=== PATIENT | female | born 1945 | race Caucasian/White ===

== ENCOUNTER 2023-05-23 13:23 | Inpatient (IN) | payer MEDICARE, OTHER ==
[~2023-05-23] VITALS: Ht 154.9 cm; Wt 57.6 kg
[2023-05-23] MEDS ORDERED: CEFEPIME 1 GM in IV D5W 50 ML IV ONE (14:00)
[2023-05-23] MEDS ORDERED: VANCOMYCIN 1 GM in IV D5W 250 ML IV ONE (14:00)
[2023-05-23] MEDS ORDERED: ASPI-1169 PO (14:17)
[2023-05-23] MEDS ORDERED: BISA10SU11 RC (14:17)
[2023-05-23] MEDS ORDERED: METO25TA3 PO (14:17)
[2023-05-23] MEDS ORDERED: CRAN425C6 PO (14:17)
[2023-05-23] MEDS ORDERED: MAGN400O6 PO (14:17)
[2023-05-23] MEDS ORDERED: HYDR-4303 PO (14:17)
[2023-05-23] MEDS ORDERED: PREG50CA PO (14:17)
[2023-05-23] MEDS ORDERED: ROSU20TA2 PO (14:17)
[2023-05-23] MEDS ORDERED: AMLO-213 PO (14:17)
[2023-05-23] MEDS ORDERED: ASCO-352 PO (14:17)
[2023-05-23] MEDS ORDERED: DOCU-141 PO (14:17)
[2023-05-23] MEDS ORDERED: FURO-144 PO (14:17)
[2023-05-23] MEDS ORDERED: ACET-868 PO ×2 (14:17)
[2023-05-23] MEDS ORDERED: MELA3TAB41 PO (14:17)
[2023-05-23] MEDS ORDERED: ALLA266C2 TP (14:17)
[2023-05-23] MEDS ORDERED: ERGO500093 PO (14:17)
[2023-05-23] MEDS ORDERED: HYDR500C PO (14:17)
[2023-05-23] MEDS ORDERED: POVI3780 TP (14:17)
[2023-05-23] MEDS ORDERED: SACU1TAB PO (14:17)
[2023-05-23] MEDS ORDERED: HYDR-4076 PO (14:17)
[2023-05-23] MEDS ORDERED: AMIN30LI2 PO (14:17)
[2023-05-23] MEDS ORDERED: DAPA5TAB PO (14:17)
[2023-05-23] MEDS ORDERED: MULT-447 PO (14:17)
[2023-05-23] MEDS ORDERED: APIX2.5T PO (14:17)
[2023-05-23 15:29] LABS: BASOPHILS # (AUTO) 0.2 K/uL (0.0-0.2); EOSINOPHILS # (AUTO) 0.2 K/uL (0.0-0.7); EOSINOPHILS % (AUTO) 0.9 % (0.0-6.0); HEMATOCRIT 49 % (33-45); HEMOGLOBIN 15.6 g/dL (11.5-14.8); LYMPHOCYTES # (AUTO) 1.7 K/uL (0.8-4.8); LYMPHOCYTES % (AUTO) 9.5 % (20.0-44.0); MEAN CORPUSCULAR HEMOGLOBIN 28 PG (26.0-33.0); MEAN CORPUSCULAR HGB CONC 32 g/dl (31.0-36.0); MEAN CORPUSCULAR VOLUME 88 fL (82-100); MONOCYTES # (AUTO) 1.3 K/uL (0.1-1.30); MONOCYTES % (AUTO) 7.3 % (2.0-12.0); NEUTROPHILS # (AUTO) 14.9 K/uL (1.8-8.9); NEUTROPHILS % (AUTO) 81.3 % (43.0-81.0); RED BLOOD CELL COUNT(AUTO) 5.54 MIL/uL (4.0-5.2); RED CELL DISTRIBUTION WIDTH 19.2 % (11.5-15.0); WHITE BLOOD COUNT (AUTO) 18.3 K/uL (4.3-11.0)
[2023-05-23 15:42] LABS: PLATELET COUNT (AUTO) 901 K/uL (150-450)
[2023-05-23 15:47] LABS: INR 1.01 (0.91-1.10); PROTHROMBIN TIME 10.7 SECS (9.2-11.1)
[2023-05-23 16:06] LABS: ALANINE AMINOTRANSFERASE 10 U/L (12-78); ALBUMIN 3.4 g/dL (3.4-5.0); ALKALINE PHOSPHATASE 143 U/L (46-116); ASPARTATE AMINOTRANSFERASE 19 U/L (15-37); BILIRUBIN,DIRECT 0.2 mg/dL (0.0-0.2); BILIRUBIN,TOTAL 0.4 mg/dL (0.2-1.0); CALCIUM, SERUM 10.3 mg/dL (8.5-10.1); CARBON DIOXIDE 26 mmol/L (21-32); CHLORIDE 99 mmol/L (98-107); GLUCOSE 115 mg/dL (74-106); POTASSIUM 4.3 mmol/L (3.5-5.1); SODIUM SERUM 137 mmol/L (136-145); UREA NITROGEN, BLOOD 15 mg/dL (7-18)
[2023-05-23 16:14] LABS: LACTIC ACID 2.2 mmol/L (0.4-2.0)
[2023-05-23] MEDS ORDERED: MAGNESIUM HYDROXIDE 30 ML UDC PO PRN (19:00)
[2023-05-23] MEDS ORDERED: ACETAMINOPHEN 325 MG TABLET PO PRN (19:00)
[2023-05-23] MEDS ORDERED: ZOLPIDEM TARTRATE 5 MG TABLET PO PRN (19:00)
[2023-05-23] MEDS ORDERED: Z GUARD REMEDY 4 OZ OINT TP PRN (19:00)
[2023-05-23] MEDS ORDERED: MAG HYDROX/AL HYDROX/SIMETH 30 ML UDC PO PRN (19:00)
[2023-05-23] MEDS ORDERED: ONDANSETRON HCL/PF 4 MG/2 ML VIAL IVP PRN (19:00)
[2023-05-23] MEDS ORDERED: MORPHINE SULFATE INJ 2 MG/ML DISP.SYRIN IV ONE (20:00)
[2023-05-23 20:30] VITALS: BP 134/62; TEMP 99; O2SAT 96
[2023-05-23] MEDS: ENOXAPARIN SODIUM 40 MG/0.4 ML DISP.SYRIN SQ SCH (21:05)
[2023-05-23] MEDS: CEFEPIME 2 GM in IV D5W 100 ML IV SCH (21:38)
[2023-05-24] MEDS: HYDROCODONE/APAP 5/325MG TABLET PO PRN ×3 (02:13→17:38)
[2023-05-24] MEDS: VANCOMYCIN 0.75 GM in IV D5W 250 ML IV SCH ×2 (02:25→15:55)
[2023-05-24 07:30] VITALS: BP 147/67; TEMP 98.4; O2SAT 97
[2023-05-24] MEDS: PANTOPRAZOLE 40 MG TABLET.DR PO SCH (08:18)
[2023-05-24 08:44] LABS: BASOPHILS % (AUTO) 0.2 % (0.0-2.0); EOSINOPHILS # (AUTO) 0.2 K/uL (0.0-0.7); EOSINOPHILS % (AUTO) 1.1 % (0.0-6.0); HEMATOCRIT 45 % (33-45); HEMOGLOBIN 14.1 g/dL (11.5-14.8); LYMPHOCYTES # (AUTO) 1.2 K/uL (0.8-4.8); LYMPHOCYTES % (AUTO) 6.7 % (20.0-44.0); MEAN CORPUSCULAR HEMOGLOBIN 28 PG (26.0-33.0); MEAN CORPUSCULAR HGB CONC 32 g/dl (31.0-36.0); MEAN CORPUSCULAR VOLUME 88 fL (82-100); MONOCYTES # (AUTO) 1.4 K/uL (0.1-1.30); MONOCYTES % (AUTO) 7.6 % (2.0-12.0); NEUTROPHILS # (AUTO) 15.2 K/uL (1.8-8.9); NEUTROPHILS % (AUTO) 84.4 % (43.0-81.0); PLATELET COUNT (AUTO) 797 K/uL (150-450); RED BLOOD CELL COUNT(AUTO) 5.08 MIL/uL (4.0-5.2); RED CELL DISTRIBUTION WIDTH 19.1 % (11.5-15.0); WHITE BLOOD COUNT (AUTO) 18.1 K/uL (4.3-11.0)
[2023-05-24 08:57] LABS: CALCIUM, SERUM 9.3 mg/dL (8.5-10.1); CARBON DIOXIDE 24 mmol/L (21-32); CHLORIDE 103 mmol/L (98-107); CREATININE 0.5 mg/dL (0.6-1.3); GLUCOSE 105 mg/dL (74-106); MAGNESIUM 2.3 mg/dL (1.8-2.4); PHOSPHORUS 3.5 mg/dL (2.5-4.9); POTASSIUM 3.7 mmol/L (3.5-5.1); SODIUM SERUM 137 mmol/L (136-145); UREA NITROGEN, BLOOD 11 mg/dL (7-18)
[2023-05-24] MEDS ORDERED: DOCUSATE SODIUM 100 MG CAPSULE PO SCH (09:00)
[2023-05-24] MEDS ORDERED: Medication Not On Formulary EA (Melatonin 3 MG) PO PRN (09:00)
[2023-05-24] MEDS: HYDROXYUREA 500 MG CAPSULE PO SCH (09:48)
[2023-05-24] MEDS: FUROSEMIDE 40 MG TABLET PO SCH (09:48)
[2023-05-24] MEDS: AMLODIPINE BESYLATE 10 MG TABLET PO SCH (09:48)
[2023-05-24] MEDS: APIXABAN 2.5 MG TABLET PO SCH ×2 (09:49→17:16)
[2023-05-24] MEDS: CEFEPIME 2 GM in IV D5W 100 ML IV SCH (09:51)
[2023-05-24] MEDS ORDERED: IV NS 0.9% 1,000 ML BAG IV PRN (14:30)
[2023-05-24 16:00] VITALS: BP 134/69; TEMP 98.6; O2SAT 96
[2023-05-24] MEDS: PREGABALIN 25 MG CAPSULE PO SCH (17:14)
[2023-05-24] MEDS: ASCORBIC ACID 500 MG TABLET PO SCH (17:14)
[2023-05-24] MEDS: METOPROLOL SUCCINATE 25 MG TAB.SR.24H PO SCH (17:15)
[2023-05-24] MEDS: SACUBITRIL/VALSARTAN 1 EACH TABLET PO SCH (17:42)
[2023-05-24] MEDS ORDERED: MAGNESIUM HYDROXIDE 30 ML UDC PO PRN (19:00)
[2023-05-24] MEDS: ENOXAPARIN SODIUM 40 MG/0.4 ML DISP.SYRIN SQ SCH (20:00)
[2023-05-24] MEDS: DOCUSATE SODIUM 250 MG CAPSULE PO SCH (20:40)
[2023-05-24] MEDS: ATORVASTATIN 40 MG TABLET PO SCH (21:35)
[2023-05-24 21:42] VITALS: BP 121/67; TEMP 97.3; O2SAT 94
[2023-05-24] MEDS: MEROPENEM 500 MG in IV NS 0.9% 50 ML IV SCH (22:16)
[2023-05-25] MEDS: VANCOMYCIN 0.75 GM in IV D5W 250 ML IV SCH (03:00)
[2023-05-25] MEDS: MEROPENEM 500 MG in IV NS 0.9% 50 ML IV SCH ×3 (05:00→21:26)
[2023-05-25] MEDS ORDERED: IV NS 0.9% 1,000 ML BAG IV SCH (06:00)
[2023-05-25] MEDS ORDERED: IV NS 0.9% 1,000 ML BAG IV PRN (06:00)
[2023-05-25 06:37] LABS: CALCIUM, SERUM 9.1 mg/dL (8.5-10.1); CARBON DIOXIDE 24 mmol/L (21-32); CHLORIDE 100 mmol/L (98-107); CREATININE 0.5 mg/dL (0.6-1.3); GLUCOSE 118 mg/dL (74-106); POTASSIUM 3.7 mmol/L (3.5-5.1); SODIUM SERUM 135 mmol/L (136-145); UREA NITROGEN, BLOOD 9 mg/dL (7-18)
[2023-05-25 07:30] VITALS: BP 136/72; TEMP 97.9; O2SAT 97
[2023-05-25] MEDS: PANTOPRAZOLE 40 MG TABLET.DR PO SCH (07:30)
[2023-05-25] MEDS: IV NS 0.9% 1,000 ML IV PRN (07:57)
[2023-05-25] MEDS ORDERED: ANESTHESIA TRAY IN PYXIS 1 EA TRAY MC ONE (08:03)
[2023-05-25] MEDS ORDERED: LIDOCAINE HCL/MPF 1% 30 ML VIAL IJ ONE (08:03)
[2023-05-25] MEDS ORDERED: POLYMYXIN B SULFATE 500,000 UNITS ONE (08:03)
[2023-05-25] MEDS: DOCUSATE SODIUM 250 MG CAPSULE PO SCH (08:51)
[2023-05-25] MEDS: APIXABAN 2.5 MG TABLET PO SCH ×2 (08:51→17:55)
[2023-05-25] MEDS: SACUBITRIL/VALSARTAN 1 EACH TABLET PO SCH ×2 (08:51→17:53)
[2023-05-25] MEDS: PREGABALIN 25 MG CAPSULE PO SCH ×2 (08:52→17:54)
[2023-05-25] MEDS: FUROSEMIDE 40 MG TABLET PO SCH (08:52)
[2023-05-25] MEDS: POLYETHYLENE GLYCOL 3350 17 GM POWD.PACK PO SCH (08:52)
[2023-05-25] MEDS: AMLODIPINE BESYLATE 10 MG TABLET PO SCH (08:52)
[2023-05-25] MEDS: DAPAGLIFLOZIN PROPANEDIOL 5 MG TABLET PO SCH (08:52)
[2023-05-25] MEDS: HYDROXYUREA 500 MG CAPSULE PO SCH (08:52)
[2023-05-25] MEDS ORDERED: SUCCINYLCHOLINE CHLORIDE 20 MG/ML VIAL ONE (09:25)
[2023-05-25] MEDS ORDERED: FENTANYL PF 250MCG/5ML AMPUL ONE (09:25)
[2023-05-25] MEDS ORDERED: ROCURONIUM BROMIDE 50 MG/5 ML ONE (09:25)
[2023-05-25] MEDS ORDERED: ROPIVACAINE HCL 0.5% 5 MG/ML 30ML VIAL ONE (09:51)
[2023-05-25] MEDS ORDERED: HYDROMORPHONE 1 MG/1 ML DISP.SYRIN ONE ×2 (11:30→11:51)
[2023-05-25] MEDS: HYDROCODONE/APAP 5/325MG TABLET PO PRN ×2 (14:18→18:33)
[2023-05-25] MEDS: VANCOMYCIN 1 GM in IV D5W 250ml IV SCH (15:37)
[2023-05-25 16:00] VITALS: BP 124/62; TEMP 97.8; O2SAT 95
[2023-05-25] MEDS: ASCORBIC ACID 500 MG TABLET PO SCH (17:54)
[2023-05-25] MEDS: METOPROLOL SUCCINATE 25 MG TAB.SR.24H PO SCH (17:54)
[2023-05-25 20:00] VITALS: BP 120/60; TEMP 98.3; O2SAT 96
[2023-05-25] MEDS: ATORVASTATIN 40 MG TABLET PO SCH (22:14)
[2023-05-26] MEDS: HYDROCODONE/APAP 5/325MG TABLET PO PRN ×2 (01:53→12:33)
[2023-05-26] MEDS: VANCOMYCIN 1 GM in IV D5W 250ml IV SCH (02:40)
[2023-05-26] MEDS: IV NS 0.9% 1,000 ML IV PRN ×2 (02:48→18:47)
[2023-05-26] MEDS: MEROPENEM 500 MG in IV NS 0.9% 50 ML IV SCH (04:56)
[2023-05-26 06:43] LABS: CALCIUM, SERUM 8.7 mg/dL (8.5-10.1); CREATININE 0.6 mg/dL (0.6-1.3); POTASSIUM 4.1 mmol/L (3.5-5.1)
[2023-05-26 07:30] VITALS: BP 133/65; TEMP 97.7; O2SAT 94
[2023-05-26] MEDS: PANTOPRAZOLE 40 MG TABLET.DR PO SCH (07:38)
[2023-05-26] MEDS: PREGABALIN 25 MG CAPSULE PO SCH ×2 (08:39→17:15)
[2023-05-26] MEDS: POLYETHYLENE GLYCOL 3350 17 GM POWD.PACK PO SCH ×2 (08:39→09:00)
[2023-05-26] MEDS: HYDROXYUREA 500 MG CAPSULE PO SCH (08:39)
[2023-05-26] MEDS: FUROSEMIDE 40 MG TABLET PO SCH (08:39)
[2023-05-26] MEDS: AMLODIPINE BESYLATE 10 MG TABLET PO SCH (08:39)
[2023-05-26] MEDS: DOCUSATE SODIUM 250 MG CAPSULE PO SCH (08:39)
[2023-05-26] MEDS: APIXABAN 2.5 MG TABLET PO SCH ×2 (08:41→17:16)
[2023-05-26] MEDS: DAPAGLIFLOZIN PROPANEDIOL 5 MG TABLET PO SCH (08:42)
[2023-05-26] MEDS: SACUBITRIL/VALSARTAN 1 EACH TABLET PO SCH ×2 (08:42→17:09)
[2023-05-26 16:00] VITALS: BP 122/71; TEMP 98.6; O2SAT 95
[2023-05-26] MEDS: ASCORBIC ACID 500 MG TABLET PO SCH (17:14)
[2023-05-26] MEDS: METOPROLOL SUCCINATE 25 MG TAB.SR.24H PO SCH (17:15)
[2023-05-26 20:00] VITALS: BP 129/60; TEMP 98.4; O2SAT 93
[2023-05-26] MEDS: ATORVASTATIN 40 MG TABLET PO SCH (21:21)
[2023-05-27 05:30] VITALS: O2SAT 96
[2023-05-27] MEDS: HYDROCODONE/APAP 5/325MG TABLET PO PRN (05:32)
[2023-05-27 06:56] LABS: CALCIUM, SERUM 8.4 mg/dL (8.5-10.1); CARBON DIOXIDE 25 mmol/L (21-32); CHLORIDE 104 mmol/L (98-107); CREATININE 0.5 mg/dL (0.6-1.3); GLUCOSE 126 mg/dL (74-106); POTASSIUM 3.6 mmol/L (3.5-5.1); SODIUM SERUM 137 mmol/L (136-145); UREA NITROGEN, BLOOD 10 mg/dL (7-18)
[2023-05-27 07:30] VITALS: BP 129/73; TEMP 98.6; O2SAT 97
[2023-05-27] MEDS: PANTOPRAZOLE 40 MG TABLET.DR PO SCH (07:50)
[2023-05-27] MEDS: PREGABALIN 25 MG CAPSULE PO SCH ×2 (08:25→16:20)
[2023-05-27] MEDS: DOCUSATE SODIUM 250 MG CAPSULE PO SCH (08:26)
[2023-05-27] MEDS: HYDROXYUREA 500 MG CAPSULE PO SCH (08:26)
[2023-05-27] MEDS: AMLODIPINE BESYLATE 10 MG TABLET PO SCH (08:26)
[2023-05-27] MEDS: FUROSEMIDE 40 MG TABLET PO SCH (08:26)
[2023-05-27] MEDS: POLYETHYLENE GLYCOL 3350 17 GM POWD.PACK PO SCH (08:27)
[2023-05-27] MEDS: SACUBITRIL/VALSARTAN 1 EACH TABLET PO SCH ×2 (08:28→16:17)
[2023-05-27] MEDS: DAPAGLIFLOZIN PROPANEDIOL 5 MG TABLET PO SCH (08:28)
[2023-05-27] MEDS: APIXABAN 2.5 MG TABLET PO SCH ×2 (08:30→16:21)
[2023-05-27 09:34] LABS: BASOPHILS # (AUTO) 0.1 K/uL (0.0-0.2); BASOPHILS % (AUTO) 0.9 % (0.0-2.0); EOSINOPHILS # (AUTO) 0.1 K/uL (0.0-0.7); EOSINOPHILS % (AUTO) 0.7 % (0.0-6.0); HEMATOCRIT 36 % (33-45); HEMOGLOBIN 11.5 g/dL (11.5-14.8); LYMPHOCYTES % (AUTO) 6.6 % (20.0-44.0); MEAN CORPUSCULAR HEMOGLOBIN 28 PG (26.0-33.0); MEAN CORPUSCULAR HGB CONC 32 g/dl (31.0-36.0); MEAN CORPUSCULAR VOLUME 88 fL (82-100); MONOCYTES # (AUTO) 1.5 K/uL (0.1-1.30); MONOCYTES % (AUTO) 9.8 % (2.0-12.0); NEUTROPHILS # (AUTO) 12.4 K/uL (1.8-8.9); PLATELET COUNT (AUTO) 694 K/uL (150-450); RED CELL DISTRIBUTION WIDTH 19.3 % (11.5-15.0); WHITE BLOOD COUNT (AUTO) 15.1 K/uL (4.3-11.0)
[2023-05-27] MEDS: GABAPENTIN 300 MG CAPSULE PO SCH ×3 (09:42→16:20)
[2023-05-27] MEDS: IV NS 0.9% 1,000 ML IV PRN (14:35)
[2023-05-27 16:00] VITALS: BP 124/65; TEMP 99.1; O2SAT 96
[2023-05-27] MEDS: ASCORBIC ACID 500 MG TABLET PO SCH (17:13)
[2023-05-27] MEDS: METOPROLOL SUCCINATE 25 MG TAB.SR.24H PO SCH (17:14)
[2023-05-27 20:00] VITALS: BP 121/65; TEMP 97.6; O2SAT 95
[2023-05-27] MEDS: ATORVASTATIN 40 MG TABLET PO SCH (22:03)
[2023-05-28] MEDS ORDERED: HYDROCODONE/APAP 5/325MG TABLET ONE (05:54)
[2023-05-28] MEDS: HYDROCODONE/APAP 5/325MG TABLET PO PRN ×3 (05:55→17:50)
[2023-05-28 08:00] VITALS: BP 142/73; TEMP 98.8; O2SAT 94
[2023-05-28] MEDS ORDERED: ERGOCALCIFEROL (VITAMIN D 2) 50,000 UNIT CAPSULE PO SCH (09:00)
[2023-05-28] MEDS: SACUBITRIL/VALSARTAN 1 EACH TABLET PO SCH ×2 (09:00→17:54)
[2023-05-28] MEDS: IV NS 0.9% 1,000 ML IV PRN (12:28)
[2023-05-28] MEDS: PANTOPRAZOLE 40 MG TABLET.DR PO SCH (13:51)
[2023-05-28] MEDS: AMLODIPINE BESYLATE 10 MG TABLET PO SCH (13:52)
[2023-05-28] MEDS: PREGABALIN 25 MG CAPSULE PO SCH ×2 (13:52→17:46)
[2023-05-28] MEDS: DOCUSATE SODIUM 250 MG CAPSULE PO SCH (13:52)
[2023-05-28] MEDS: HYDROXYUREA 500 MG CAPSULE PO SCH (13:52)
[2023-05-28] MEDS: POLYETHYLENE GLYCOL 3350 17 GM POWD.PACK PO SCH (13:53)
[2023-05-28] MEDS: GABAPENTIN 300 MG CAPSULE PO SCH ×3 (13:53→17:46)
[2023-05-28] MEDS: FUROSEMIDE 40 MG TABLET PO SCH (13:53)
[2023-05-28] MEDS: APIXABAN 2.5 MG TABLET PO SCH ×2 (13:54→17:49)
[2023-05-28] MEDS: DAPAGLIFLOZIN PROPANEDIOL 5 MG TABLET PO SCH (14:00)
[2023-05-28 16:00] VITALS: BP 132/69; TEMP 98.8; O2SAT 96
[2023-05-28] MEDS: ASCORBIC ACID 500 MG TABLET PO SCH (17:46)
[2023-05-28] MEDS: METOPROLOL SUCCINATE 25 MG TAB.SR.24H PO SCH (17:47)
[2023-05-28 20:00] VITALS: BP 124/65; TEMP 98.9; O2SAT 94
[2023-05-28] MEDS: ATORVASTATIN 40 MG TABLET PO SCH (21:25)
[2023-05-29] MEDS: HYDROCODONE/APAP 5/325MG TABLET PO PRN ×2 (03:30→08:58)
[2023-05-29] MEDS: IV NS 0.9% 1,000 ML IV PRN (05:02)
[2023-05-29 06:48] LABS: CALCIUM, SERUM 8.5 mg/dL (8.5-10.1); CARBON DIOXIDE 28 mmol/L (21-32); CHLORIDE 105 mmol/L (98-107); CREATININE 0.5 mg/dL (0.6-1.3); GLUCOSE 112 mg/dL (74-106); POTASSIUM 3.4 mmol/L (3.5-5.1); SODIUM SERUM 140 mmol/L (136-145); UREA NITROGEN, BLOOD 8 mg/dL (7-18)
[2023-05-29 07:00] VITALS: BP 129/57; TEMP 98.8; O2SAT 94
[2023-05-29] MEDS: PANTOPRAZOLE 40 MG TABLET.DR PO SCH (08:02)
[2023-05-29] MEDS: GABAPENTIN 300 MG CAPSULE PO SCH ×3 (08:53→17:13)
[2023-05-29] MEDS: HYDROXYUREA 500 MG CAPSULE PO SCH (08:54)
[2023-05-29] MEDS: FUROSEMIDE 40 MG TABLET PO SCH (08:55)
[2023-05-29] MEDS: PREGABALIN 25 MG CAPSULE PO SCH ×2 (08:55→17:13)
[2023-05-29] MEDS: POLYETHYLENE GLYCOL 3350 17 GM POWD.PACK PO SCH (08:55)
[2023-05-29] MEDS: AMLODIPINE BESYLATE 10 MG TABLET PO SCH (08:57)
[2023-05-29] MEDS: DOCUSATE SODIUM 250 MG CAPSULE PO SCH (08:58)
[2023-05-29] MEDS ORDERED: POTASSIUM CHLORIDE 20 MEQ TAB.PRT.SR PO ONE ×2 (09:00→12:30)
[2023-05-29] MEDS: APIXABAN 2.5 MG TABLET PO SCH ×2 (09:00→17:18)
[2023-05-29] MEDS: SACUBITRIL/VALSARTAN 1 EACH TABLET PO SCH ×2 (12:27→17:14)
[2023-05-29] MEDS: DAPAGLIFLOZIN PROPANEDIOL 5 MG TABLET PO SCH (14:08)
[2023-05-29 16:00] VITALS: BP 116/64; TEMP 99; O2SAT 95
[2023-05-29] MEDS: METOPROLOL SUCCINATE 25 MG TAB.SR.24H PO SCH (17:22)
[2023-05-29] MEDS: ASCORBIC ACID 500 MG TABLET PO SCH (17:22)
[2023-05-29 20:33] VITALS: BP 112/56; TEMP 98.4; O2SAT 94
[2023-05-29] MEDS: ATORVASTATIN 40 MG TABLET PO SCH (21:45)
[2023-05-30] MEDS: IV NS 0.9% 1,000 ML IV PRN (02:11)
[2023-05-30 08:00] VITALS: BP 128/50; TEMP 97.6; O2SAT 96
[2023-05-30 09:00] LABS: BASOPHILS # (AUTO) 0.2 K/uL (0.0-0.2); BASOPHILS % (AUTO) 1.2 % (0.0-2.0); EOSINOPHILS # (AUTO) 0.2 K/uL (0.0-0.7); EOSINOPHILS % (AUTO) 1.3 % (0.0-6.0); HEMATOCRIT 37 % (33-45); HEMOGLOBIN 11.9 g/dL (11.5-14.8); LYMPHOCYTES # (AUTO) 1.2 K/uL (0.8-4.8); MEAN CORPUSCULAR HEMOGLOBIN 28 PG (26.0-33.0); MEAN CORPUSCULAR HGB CONC 32 g/dl (31.0-36.0); MEAN CORPUSCULAR VOLUME 88 fL (82-100); MONOCYTES % (AUTO) 7.3 % (2.0-12.0); NEUTROPHILS # (AUTO) 10.7 K/uL (1.8-8.9); NEUTROPHILS % (AUTO) 81.2 % (43.0-81.0); PLATELET COUNT (AUTO) 622 K/uL (150-450); RED BLOOD CELL COUNT(AUTO) 4.24 MIL/uL (4.0-5.2); WHITE BLOOD COUNT (AUTO) 13.2 K/uL (4.3-11.0)
[2023-05-30 09:08] LABS: CALCIUM, SERUM 8.9 mg/dL (8.5-10.1); CARBON DIOXIDE 25 mmol/L (21-32); CHLORIDE 103 mmol/L (98-107); CREATININE 0.6 mg/dL (0.6-1.3); GLUCOSE 166 mg/dL (74-106); POTASSIUM 3.8 mmol/L (3.5-5.1); SODIUM SERUM 139 mmol/L (136-145); UREA NITROGEN, BLOOD 8 mg/dL (7-18)
[2023-05-30] MEDS: SACUBITRIL/VALSARTAN 1 EACH TABLET PO SCH (09:48)
[2023-05-30] MEDS: HYDROXYUREA 500 MG CAPSULE PO SCH (09:49)
[2023-05-30] MEDS: FUROSEMIDE 40 MG TABLET PO SCH (09:49)
[2023-05-30] MEDS: GABAPENTIN 300 MG CAPSULE PO SCH ×2 (09:49→12:41)
[2023-05-30] MEDS: PANTOPRAZOLE 40 MG TABLET.DR PO SCH (09:49)
[2023-05-30] MEDS: POLYETHYLENE GLYCOL 3350 17 GM POWD.PACK PO SCH (09:49)
[2023-05-30] MEDS: DOCUSATE SODIUM 250 MG CAPSULE PO SCH (09:49)
[2023-05-30] MEDS: PREGABALIN 25 MG CAPSULE PO SCH (09:49)
[2023-05-30] MEDS: APIXABAN 2.5 MG TABLET PO SCH (09:51)
[2023-05-30] MEDS: AMLODIPINE BESYLATE 10 MG TABLET PO SCH (09:51)
[2023-05-30] MEDS: DAPAGLIFLOZIN PROPANEDIOL 5 MG TABLET PO SCH (12:40)
[2023-05-30 16:00] VITALS: BP 117/56; TEMP 98.4; O2SAT 94
[2023-05-30] MEDS ORDERED: HYDR-3972 PO (18:29)
[2023-05-30] MEDS ORDERED: PREG50CA PO (18:29)
== END 2023-05-30 17:26 | DRG 240 ==
LOC: ER 13:40 → MED 19:51
PROVIDERS: ATTEND Internal Medicine
PROC: 0Y6C0Z3 Detachment at Right Upper Leg, Low, Open Approach (ICD-10-PCS; principal; 2023-05-25)
DX: I73.9 Peripheral vascular disease, unspecified (principal); D47.1 Chronic myeloproliferative disease; I50.32 Chronic diastolic (congestive) heart failure; S22.42XA Multiple fractures of ribs, left side, initial encounter for closed fracture; E87.20 Acidosis, unspecified; I11.0 Hypertensive heart disease with heart failure; D75.839 Thrombocytosis, unspecified; E78.5 Hyperlipidemia, unspecified; E83.52 Hypercalcemia; Z66 Do not resuscitate; Z79.01 Long term (current) use of anticoagulants; Z79.82 Long term (current) use of aspirin; Z20.822 Contact with and (suspected) exposure to COVID-19; D72.829 Elevated white blood cell count, unspecified; F03.90 Unspecified dementia, unspecified severity, without behavioral disturbance, psychotic disturbance, mood disturbance, and anxiety; M20.41 Other hammer toe(s) (acquired), right foot; M77.31 Calcaneal spur, right foot; X58.XXXA Exposure to other specified factors, initial encounter; Y93.9 Activity, unspecified; Y92.129 Unspecified place in nursing home as the place of occurrence of the external cause
CPT/HCPCS: 36415; 71045-TC; 73630-TC; 80048-TC; 80076-TC; 80202-TC; 83605-TC; 83735-TC; 84100-TC; 84484-TC; 85025-TC; 85730-TC; 86850-TC; 87040-TC; 87081-TC; 93307-TC; 97110-TC; 97112-TC; 97530-TC; A4223; G0378; J0330; J0690; J0692; J1170; J1650; J2185; J2270; J2405; J2704; J2765; J2795; J3010; J3370; J3490; J7030; J7060

== ENCOUNTER 2023-08-02 19:57 | Inpatient (IN) | payer MEDICARE, OTHER ==
[~2023-08-02] VITALS: Ht 165.1 cm; Wt 56.5 kg
[~2023-08-02 19:57] MED LIST: ACET-868 PO; ALLA266C2 TP; AMIN30LI2 PO; AMLO-213 PO; APIX2.5T PO; ASCO-352 PO; ASPI-1169 PO; BISA10SU11 RC; CRAN425C6 PO; DAPA5TAB PO; DOCU-141 PO; ERGO500093 PO; FURO-144 PO; HYDR-3972 PO; HYDR-4076 PO; HYDR-4303 PO; HYDR500C PO; MAGN400O6 PO; MELA3TAB41 PO; METO25TA3 PO; MULT-447 PO; POVI3780 TP; PREG50CA PO; ROSU20TA2 PO; SACU1TAB PO
[2023-08-02 21:01] LABS: BASOPHILS % (AUTO) 0.3 % (0.0-2.0); EOSINOPHILS % (AUTO) 0.1 % (0.0-6.0); HEMATOCRIT 50 % (33-45); HEMOGLOBIN 16.2 g/dL (11.5-14.8); LYMPHOCYTES # (AUTO) 0.9 K/uL (0.8-4.8); LYMPHOCYTES % (AUTO) 6.5 % (20.0-44.0); MEAN CORPUSCULAR HEMOGLOBIN 29 PG (26.0-33.0); MEAN CORPUSCULAR HGB CONC 32 g/dl (31.0-36.0); MEAN CORPUSCULAR VOLUME 91 fL (82-100); MONOCYTES # (AUTO) 1.5 K/uL (0.1-1.30); MONOCYTES % (AUTO) 10.8 % (2.0-12.0); NEUTROPHILS # (AUTO) 11.2 K/uL (1.8-8.9); NEUTROPHILS % (AUTO) 82.3 % (43.0-81.0); PLATELET COUNT (AUTO) 531 K/uL (150-450); RED BLOOD CELL COUNT(AUTO) 5.51 MIL/uL (4.0-5.2); RED CELL DISTRIBUTION WIDTH 16.2 % (11.5-15.0); WHITE BLOOD COUNT (AUTO) 13.6 K/uL (4.3-11.0)
[2023-08-02 21:15] LABS: INR 1.08 (0.91-1.10); PARTIAL THROMBOPLASTIN TIME 35.7 SEC (24.3-34.3); PROTHROMBIN TIME 11.4 SECS (9.2-11.1)
[2023-08-02] MEDS ORDERED: GABA-532 PO (22:32)
[2023-08-02] MEDS ORDERED: ATOR40TA PO (22:32)
[2023-08-02 22:39] LABS: LYMPHOCYTES % (MANUAL) 4 % (16-48); MONOCYTES % (MANUAL) 7 % (0-11.0); NEUTROPHILS % (MANUAL) 89 (42-76); PLATELET ESTIMATE INCREASED
[2023-08-02 22:53] LABS: CALCIUM, SERUM 9.5 mg/dL (8.5-10.1); CARBON DIOXIDE 26 mmol/L (21-32); CHLORIDE 103 mmol/L (98-107); CREATININE 0.8 mg/dL (0.6-1.3); GLUCOSE 123 mg/dL (74-106); POTASSIUM 3.4 mmol/L (3.5-5.1); SODIUM SERUM 139 mmol/L (136-145); UREA NITROGEN, BLOOD 24 mg/dL (7-18)
[2023-08-02 23:00] VITALS: BP 122/61; TEMP 97.5; O2SAT 94
[2023-08-03] MEDS ORDERED: ONDANSETRON HCL/PF 4 MG/2 ML VIAL IVP PRN (00:30)
[2023-08-03] MEDS ORDERED: ENOXAPARIN SODIUM 40 MG/0.4 ML DISP.SYRIN SQ SCH (00:30)
[2023-08-03] MEDS ORDERED: ACETAMINOPHEN 325 MG TABLET PO PRN (00:30)
[2023-08-03] MEDS ORDERED: POTASSIUM CHLORIDE 20 MEQ TAB.PRT.SR PO ONE (00:30)
[2023-08-03] MEDS: IV NS 0.9% 1,000 ML IV PRN ×2 (00:52→15:57)
[2023-08-03 04:00] VITALS: BP 131/65; TEMP 98.2; O2SAT 97
[2023-08-03 07:16] LABS: BASOPHILS # (AUTO) 0.1 K/uL (0.0-0.2); BASOPHILS % (AUTO) 0.8 % (0.0-2.0); EOSINOPHILS # (AUTO) 0.1 K/uL (0.0-0.7); EOSINOPHILS % (AUTO) 0.8 % (0.0-6.0); HEMATOCRIT 47 % (33-45); HEMOGLOBIN 15.6 g/dL (11.5-14.8); LYMPHOCYTES % (AUTO) 10.1 % (20.0-44.0); MEAN CORPUSCULAR HEMOGLOBIN 30 PG (26.0-33.0); MEAN CORPUSCULAR HGB CONC 33 g/dl (31.0-36.0); MEAN CORPUSCULAR VOLUME 91 fL (82-100); MONOCYTES # (AUTO) 1.6 K/uL (0.1-1.30); MONOCYTES % (AUTO) 15.4 % (2.0-12.0); NEUTROPHILS # (AUTO) 7.4 K/uL (1.8-8.9); NEUTROPHILS % (AUTO) 72.9 % (43.0-81.0); PLATELET COUNT (AUTO) 434 K/uL (150-450); RED BLOOD CELL COUNT(AUTO) 5.13 MIL/uL (4.0-5.2); RED CELL DISTRIBUTION WIDTH 15.9 % (11.5-15.0); WHITE BLOOD COUNT (AUTO) 10.2 K/uL (4.3-11.0)
[2023-08-03 07:41] LABS: CALCIUM, SERUM 9.4 mg/dL (8.5-10.1); CARBON DIOXIDE 24 mmol/L (21-32); CHLORIDE 107 mmol/L (98-107); CREATININE 0.5 mg/dL (0.6-1.3); GLUCOSE 102 mg/dL (74-106); MAGNESIUM 2.4 mg/dL (1.8-2.4); PHOSPHORUS 3.6 mg/dL (2.5-4.9); POTASSIUM 3.8 mmol/L (3.5-5.1); SODIUM SERUM 140 mmol/L (136-145); UREA NITROGEN, BLOOD 22 mg/dL (7-18)
[2023-08-03] MEDS ORDERED: PANT40TA49 PO (08:33)
[2023-08-03] MEDS: MULTIVIT W/MINERALS 1 TAB TABLET PO SCH (09:27)
[2023-08-03] MEDS: PREGABALIN 25 MG CAPSULE PO SCH ×2 (09:27→17:03)
[2023-08-03] MEDS: SACUBITRIL/VALSARTAN 1 EACH TABLET PO SCH ×2 (09:28→17:04)
[2023-08-03] MEDS: HYDROXYUREA 500 MG CAPSULE PO SCH (09:28)
[2023-08-03] MEDS: DOCUSATE SODIUM 100 MG CAPSULE PO SCH (09:28)
[2023-08-03] MEDS: GABAPENTIN 100 MG CAPSULE PO SCH ×2 (09:28→17:04)
[2023-08-03] MEDS: AMLODIPINE BESYLATE 10 MG TABLET PO SCH (09:29)
[2023-08-03] MEDS: APIXABAN 2.5 MG TABLET PO SCH ×2 (09:32→17:07)
[2023-08-03] MEDS: PROSOURCE / PROSTAT (PYXIS) 30 ML UDC GT SCH (09:50)
[2023-08-03] MEDS ORDERED: Z GUARD REMEDY 4 OZ OINT TP PRN (10:00)
[2023-08-03 10:27] LABS: ANISOCYTOSIS 1+; EOSINOPHILS % (MANUAL) 1 % (0-4); LYMPHOCYTES % (MANUAL) 13 % (16-48); MONOCYTES % (MANUAL) 13 % (0-11.0); NEUTROPHILS % (MANUAL) 73 (42-76); PLATELET ESTIMATE ADEQUATE
[2023-08-03] MEDS: Z GUARD REMEDY 4 OZ OINT TP SCH (10:52)
[2023-08-03 12:00] VITALS: BP 128/72; TEMP 98; O2SAT 97
[2023-08-03] MEDS: DAPAGLIFLOZIN PROPANEDIOL 5 MG TABLET PO SCH (14:18)
[2023-08-03] MEDS: ASCORBIC ACID 500 MG TABLET PO SCH (17:03)
[2023-08-03] MEDS: METOPROLOL SUCCINATE 25 MG TAB.SR.24H PO SCH (17:08)
[2023-08-03 20:00] VITALS: BP 125/62; TEMP 98.1; O2SAT 96
[2023-08-03] MEDS: ATORVASTATIN 40 MG TABLET PO SCH (22:43)
[2023-08-04 04:31] VITALS: BP 131/68; TEMP 97.8; O2SAT 98
[2023-08-04] MEDS: IV NS 0.9% 1,000 ML IV PRN ×2 (06:04→23:09)
[2023-08-04 08:00] VITALS: BP 140/78; TEMP 98.3; O2SAT 96
[2023-08-04] MEDS: DOCUSATE SODIUM 100 MG CAPSULE PO SCH (08:07)
[2023-08-04] MEDS: DAPAGLIFLOZIN PROPANEDIOL 5 MG TABLET PO SCH (08:08)
[2023-08-04] MEDS: PREGABALIN 25 MG CAPSULE PO SCH ×2 (08:08→17:26)
[2023-08-04] MEDS: MULTIVIT W/MINERALS 1 TAB TABLET PO SCH (08:08)
[2023-08-04] MEDS: HYDROXYUREA 500 MG CAPSULE PO SCH (08:08)
[2023-08-04] MEDS: GABAPENTIN 100 MG CAPSULE PO SCH ×2 (08:08→17:26)
[2023-08-04] MEDS: AMLODIPINE BESYLATE 10 MG TABLET PO SCH (08:09)
[2023-08-04] MEDS: SACUBITRIL/VALSARTAN 1 EACH TABLET PO SCH ×2 (08:09→17:27)
[2023-08-04] MEDS: PROSOURCE / PROSTAT (PYXIS) 30 ML UDC PO SCH ×3 (08:09→17:28)
[2023-08-04] MEDS: Z GUARD REMEDY 4 OZ OINT TP SCH (08:10)
[2023-08-04] MEDS: APIXABAN 2.5 MG TABLET PO SCH ×2 (08:15→17:28)
[2023-08-04] MEDS: PROSOURCE / PROSTAT (PYXIS) 30 ML UDC GT SCH (09:00)
[2023-08-04 16:00] VITALS: BP 145/83; TEMP 98.1; O2SAT 95
[2023-08-04] MEDS: METOPROLOL SUCCINATE 25 MG TAB.SR.24H PO SCH (17:27)
[2023-08-04] MEDS: ASCORBIC ACID 500 MG TABLET PO SCH (17:29)
[2023-08-04 20:00] VITALS: BP 126/62; TEMP 97.9; O2SAT 96
[2023-08-04] MEDS: ATORVASTATIN 40 MG TABLET PO SCH (21:13)
[2023-08-05 04:00] VITALS: BP 126/62; TEMP 97.9; O2SAT 96
[2023-08-05 08:00] VITALS: BP 138/64; TEMP 97.5; O2SAT 95
[2023-08-05] MEDS: HYDROXYUREA 500 MG CAPSULE PO SCH (08:51)
[2023-08-05] MEDS: GABAPENTIN 100 MG CAPSULE PO SCH ×2 (08:51→17:21)
[2023-08-05] MEDS: PREGABALIN 25 MG CAPSULE PO SCH ×2 (08:51→17:22)
[2023-08-05] MEDS: DOCUSATE SODIUM 100 MG CAPSULE PO SCH (08:51)
[2023-08-05] MEDS: MULTIVIT W/MINERALS 1 TAB TABLET PO SCH (08:51)
[2023-08-05] MEDS: SACUBITRIL/VALSARTAN 1 EACH TABLET PO SCH ×2 (08:52→17:22)
[2023-08-05] MEDS: AMLODIPINE BESYLATE 10 MG TABLET PO SCH (08:52)
[2023-08-05] MEDS: DAPAGLIFLOZIN PROPANEDIOL 5 MG TABLET PO SCH (08:52)
[2023-08-05] MEDS: PROSOURCE / PROSTAT (PYXIS) 30 ML UDC PO SCH ×3 (08:52→17:22)
[2023-08-05] MEDS: APIXABAN 2.5 MG TABLET PO SCH ×2 (08:53→17:24)
[2023-08-05] MEDS: PROSOURCE / PROSTAT (PYXIS) 30 ML UDC GT SCH (08:54)
[2023-08-05] MEDS: Z GUARD REMEDY 4 OZ OINT TP SCH (08:54)
[2023-08-05 16:00] VITALS: BP 134/67; TEMP 97.7; O2SAT 97
[2023-08-05] MEDS: ASCORBIC ACID 500 MG TABLET PO SCH (17:21)
[2023-08-05] MEDS: METOPROLOL SUCCINATE 25 MG TAB.SR.24H PO SCH (17:23)
[2023-08-05] MEDS: IV NS 0.9% 1,000 ML IV PRN (18:12)
[2023-08-05 20:00] VITALS: BP 106/78; TEMP 98.8; O2SAT 99
[2023-08-05] MEDS: ATORVASTATIN 40 MG TABLET PO SCH (22:10)
[2023-08-06 04:00] VITALS: BP 108/78; TEMP 98.2; O2SAT 99
[2023-08-06 08:00] VITALS: BP 138/83; TEMP 97; O2SAT 97
[2023-08-06] MEDS ORDERED: ERGOCALCIFEROL (VITAMIN D 2) 50,000 UNIT CAPSULE PO SCH (09:00)
[2023-08-06] MEDS: DOCUSATE SODIUM 100 MG CAPSULE PO SCH (09:58)
[2023-08-06] MEDS: Z GUARD REMEDY 4 OZ OINT TP SCH (09:59)
[2023-08-06] MEDS: HYDROXYUREA 500 MG CAPSULE PO SCH (09:59)
[2023-08-06] MEDS: PREGABALIN 25 MG CAPSULE PO SCH ×2 (09:59→17:46)
[2023-08-06] MEDS: MULTIVIT W/MINERALS 1 TAB TABLET PO SCH (09:59)
[2023-08-06] MEDS: GABAPENTIN 100 MG CAPSULE PO SCH ×2 (09:59→17:46)
[2023-08-06] MEDS: DAPAGLIFLOZIN PROPANEDIOL 5 MG TABLET PO SCH (10:00)
[2023-08-06] MEDS: PROSOURCE / PROSTAT (PYXIS) 30 ML UDC GT SCH (10:00)
[2023-08-06] MEDS: SACUBITRIL/VALSARTAN 1 EACH TABLET PO SCH (10:00)
[2023-08-06 10:01] VITALS: BP 138/83
[2023-08-06] MEDS: AMLODIPINE BESYLATE 10 MG TABLET PO SCH (10:01)
[2023-08-06] MEDS: APIXABAN 2.5 MG TABLET PO SCH ×2 (10:03→17:47)
[2023-08-06] MEDS: PROSOURCE / PROSTAT (PYXIS) 30 ML UDC PO SCH ×2 (10:04→13:06)
[2023-08-06] MEDS: IV NS 0.9% 1,000 ML IV PRN (10:39)
[2023-08-06] MEDS: ASCORBIC ACID 500 MG TABLET PO SCH (17:46)
== END 2023-08-06 18:10 | DRG 177 ==
LOC: ER 20:04 → MEDSG1 21:59
PROVIDERS: ADMIT Nurse Practitioner Acute Care; ATTEND Nurse Practitioner Acute Care
DX: U07.1 COVID-19 (principal); G93.41 Metabolic encephalopathy; I50.43 Acute on chronic combined systolic (congestive) and diastolic (congestive) heart failure; D68.59 Other primary thrombophilia; R62.7 Adult failure to thrive; I11.0 Hypertensive heart disease with heart failure; E86.0 Dehydration; F03.90 Unspecified dementia, unspecified severity, without behavioral disturbance, psychotic disturbance, mood disturbance, and anxiety; D72.829 Elevated white blood cell count, unspecified; R79.89 Other specified abnormal findings of blood chemistry; E87.6 Hypokalemia; Z68.20 Body mass index [BMI] 20.0-20.9, adult; F09 Unspecified mental disorder due to known physiological condition; E78.5 Hyperlipidemia, unspecified; I73.9 Peripheral vascular disease, unspecified; Z89.611 Acquired absence of right leg above knee; Z79.82 Long term (current) use of aspirin; Z79.01 Long term (current) use of anticoagulants; L89.156 Pressure-induced deep tissue damage of sacral region
CPT/HCPCS: 36415; 71045-TC; 80048-TC; 83735-TC; 84100-TC; 85025-TC; 85378-TC; 85730-TC; 86140-TC; 87081-TC; A4223; G0378; J1650; J7030

== ENCOUNTER 2023-10-18 12:07 | Inpatient (IN) | payer MEDICARE, OTHER ==
[~2023-10-18] VITALS: Ht 165.1 cm; Wt 55.8 kg
[~2023-10-18 12:07] MED LIST changes: -ALLA266C2 TP; -ASPI-1169 PO; +ATOR40TA PO; -BISA10SU11 RC; +GABA-532 PO; -HYDR-3972 PO; -HYDR-4076 PO; -MELA3TAB41 PO; +PANT40TA49 PO; -POVI3780 TP; -ROSU20TA2 PO
[2023-10-18 12:38] LABS: BASOPHILS # (AUTO) 0.2 K/uL (0.0-0.2); BASOPHILS % (AUTO) 0.9 % (0.0-2.0); EOSINOPHILS # (AUTO) 1.2 K/uL (0.0-0.7); EOSINOPHILS % (AUTO) 6.2 % (0.0-6.0); HEMATOCRIT 54 % (33-45); HEMOGLOBIN 17.3 g/dL (11.5-14.8); LYMPHOCYTES % (AUTO) 4.9 % (20.0-44.0); MEAN CORPUSCULAR HEMOGLOBIN 27 PG (26.0-33.0); MEAN CORPUSCULAR HGB CONC 32 g/dl (31.0-36.0); MEAN CORPUSCULAR VOLUME 83 fL (82-100); MONOCYTES # (AUTO) 0.9 K/uL (0.1-1.30); MONOCYTES % (AUTO) 4.4 % (2.0-12.0); NEUTROPHILS # (AUTO) 16.3 K/uL (1.8-8.9); NEUTROPHILS % (AUTO) 83.6 % (43.0-81.0); PLATELET COUNT (AUTO) 728 K/uL (150-450); RED BLOOD CELL COUNT(AUTO) 6.47 MIL/uL (4.0-5.2); RED CELL DISTRIBUTION WIDTH 18.8 % (11.5-15.0); WHITE BLOOD COUNT (AUTO) 19.5 K/uL (4.3-11.0)
[2023-10-18] MEDS: IV NS 0.9% 500 ML BAG IV ONE (12:41)
[2023-10-18 12:49] LABS: CALCIUM, SERUM 9.3 mg/dL (8.5-10.1); CREATININE 0.6 mg/dL (0.6-1.3); POTASSIUM 3.9 mmol/L (3.5-5.1)
[2023-10-18 12:55] LABS: ALBUMIN 4.1 g/dL (3.4-5.0); BILIRUBIN,DIRECT 0.2 mg/dL (0.0-0.2); BILIRUBIN,TOTAL 0.6 mg/dL (0.2-1.0); TOTAL PROTEIN, SERUM 7.3 g/dL (6.4-8.2)
[2023-10-18] MEDS ORDERED: CEFU250T85 PO (13:42)
[2023-10-18] MEDS ORDERED: PRED20TA PO (13:42)
[2023-10-18] MEDS ORDERED: NA P133E RC (13:42)
[2023-10-18] MEDS ORDERED: BISA10SU11 RC (13:42)
[2023-10-18] MEDS ORDERED: CEFTRIAXONE 1GM BAG (ER ONLY) 0 ML IV ONE (13:47)
[2023-10-18] MEDS: CEFEPIME 1 GM in IV D5W 50 ML IV ONE (14:02)
[2023-10-18 14:05] LABS: INR 1.02 (0.91-1.10); PARTIAL THROMBOPLASTIN TIME 28.6 SEC (24.3-34.3); PROTHROMBIN TIME 10.5 SECS (9.2-11.1)
[2023-10-18 14:11] LABS: LACTIC ACID 1.3 mmol/L (0.4-2.0)
[2023-10-18 14:41] LABS: APPEARANCE,URINE Clear (CLEAR); BILIRUBIN,URINE Negative (NEGATIVE); BLOOD, URINE Negative Ery/uL (NEGATIVE); COLOR,URINE YELLOW (YELLOW); KETONES,URINE Negative (NEGATIVE); LEUKOCYTE ESTERASE ,URINE Negative (NEGATIVE); NITRITE, URINE Negative (NEGATIVE); PROTEIN,URINE Negative (NEGATIVE); UGLUCOSE 250 MG/DL mg/dL (NEGATIVE); UROBILINOGEN,URINE 0.2 EU/dL (0.2)
[2023-10-18 14:45] LABS: EOSINOPHILS % (MANUAL) 4 % (0-4); LYMPHOCYTES % (MANUAL) 2 % (16-48); MONOCYTES % (MANUAL) 1 % (0-11.0); NEUTROPHILS % (MANUAL) 93 (42-76)
[2023-10-18 14:47] LABS: ANISOCYTOSIS 2+; PLATELET ESTIMATE INCREASED
[2023-10-18] MEDS ORDERED: MAGNESIUM HYDROXIDE 30 ML UDC PO PRN (17:00)
[2023-10-18] MEDS ORDERED: MAG HYDROX/AL HYDROX/SIMETH 30 ML UDC PO PRN (17:00)
[2023-10-18] MEDS ORDERED: Z GUARD REMEDY 4 OZ OINT TP PRN (17:00)
[2023-10-18] MEDS ORDERED: ONDANSETRON HCL/PF 4 MG/2 ML VIAL IVP PRN (17:00)
[2023-10-18 20:00] VITALS: BP 121/62; TEMP 98.4; O2SAT 98
[2023-10-18] MEDS: CEFEPIME 1 GM in IV D5W 50 ML IV SCH (21:52)
[2023-10-19] VITALS: BP 123/66; TEMP 98.2; O2SAT 95
[2023-10-19 04:00] VITALS: BP 145/69; TEMP 98.2; O2SAT 95
[2023-10-19 07:29] LABS: BASOPHILS # (AUTO) 0.2 K/uL (0.0-0.2); BASOPHILS % (AUTO) 1.2 % (0.0-2.0); EOSINOPHILS # (AUTO) 1.2 K/uL (0.0-0.7); EOSINOPHILS % (AUTO) 7.1 % (0.0-6.0); HEMATOCRIT 52 % (33-45); HEMOGLOBIN 17.2 g/dL (11.5-14.8); LYMPHOCYTES # (AUTO) 1.8 K/uL (0.8-4.8); LYMPHOCYTES % (AUTO) 10.1 % (20.0-44.0); MEAN CORPUSCULAR HEMOGLOBIN 28 PG (26.0-33.0); MEAN CORPUSCULAR HGB CONC 33 g/dl (31.0-36.0); MEAN CORPUSCULAR VOLUME 83 fL (82-100); MONOCYTES # (AUTO) 1.4 K/uL (0.1-1.30); MONOCYTES % (AUTO) 7.9 % (2.0-12.0); NEUTROPHILS # (AUTO) 12.9 K/uL (1.8-8.9); NEUTROPHILS % (AUTO) 73.7 % (43.0-81.0); PLATELET COUNT (AUTO) 645 K/uL (150-450); RED BLOOD CELL COUNT(AUTO) 6.24 MIL/uL (4.0-5.2); RED CELL DISTRIBUTION WIDTH 19.1 % (11.5-15.0); WHITE BLOOD COUNT (AUTO) 17.5 K/uL (4.3-11.0)
[2023-10-19 07:50] LABS: CHOLESTEROL 133 mg/dL (<200); HDL CHOLESTEROL 45 mg/dL (40-60); LDL 66 mg/dL (0-99); THYROID STIMULATING HORMONE 0.737 uIU/mL (0.358-3.74); TRIGLYCERIDES 117 mg/dL (30-150)
[2023-10-19 08:00] VITALS: BP 114/69; TEMP 97.7; O2SAT 98
[2023-10-19 08:38] LABS: CALCIUM, SERUM 9.4 mg/dL (8.5-10.1); CARBON DIOXIDE 22 mmol/L (21-32); CHLORIDE 108 mmol/L (98-107); CREATININE 0.5 mg/dL (0.6-1.3); GLUCOSE 97 mg/dL (74-106); MAGNESIUM 2.4 mg/dL (1.8-2.4); PHOSPHORUS 3.4 mg/dL (2.5-4.9); POTASSIUM 3.6 mmol/L (3.5-5.1); SODIUM SERUM 144 mmol/L (136-145); UREA NITROGEN, BLOOD 22 mg/dL (7-18)
[2023-10-19] MEDS: GABAPENTIN 300 MG CAPSULE PO SCH (09:02)
[2023-10-19] MEDS: PREGABALIN 25 MG CAPSULE PO SCH (09:02)
[2023-10-19] MEDS: HYDROXYUREA 500 MG CAPSULE PO SCH ×2 (09:02→17:07)
[2023-10-19] MEDS: PANTOPRAZOLE 40 MG TABLET.DR PO SCH (09:03)
[2023-10-19] MEDS: AMLODIPINE BESYLATE 10 MG TABLET PO SCH (09:04)
[2023-10-19] MEDS: APIXABAN 2.5 MG TABLET PO SCH (09:05)
[2023-10-19] MEDS: SACUBITRIL/VALSARTAN 1 EACH TABLET PO SCH (09:26)
[2023-10-19] MEDS: DAPAGLIFLOZIN PROPANEDIOL 5 MG TABLET PO SCH (09:26)
[2023-10-19 12:00] VITALS: BP 117/72; TEMP 98.2; O2SAT 98
[2023-10-19 16:00] VITALS: BP 117/70; TEMP 98.2; O2SAT 98
[2023-10-19] MEDS: METOPROLOL SUCCINATE 25 MG TAB.SR.24H PO SCH (17:07)
[2023-10-19] MEDS: ASPIRIN 81 MG TAB.CHEW PO SCH (18:10)
[2023-10-19] MEDS: PERMETHRIN 5% CRM 60 GM TUBE TP ONE (18:25)
[2023-10-19 20:00] VITALS: BP 108/58; TEMP 98.1; O2SAT 95
[2023-10-19] MEDS: CEFEPIME 1 GM in IV D5W 50 ML IV SCH (20:41)
[2023-10-19] MEDS: ATORVASTATIN 40 MG TABLET PO SCH (21:39)
[2023-10-19] MEDS: ZOLPIDEM TARTRATE 5 MG TABLET PO PRN (22:16)
[2023-10-20] VITALS: BP 129/64; TEMP 98.2; O2SAT 96
[2023-10-20 04:00] VITALS: BP 131/79; TEMP 97.8; O2SAT 97
[2023-10-20 08:00] VITALS: BP 131/85; TEMP 97.5; O2SAT 100
[2023-10-20 08:24] LABS: ERYTHROCYTE SEDIMENTATION RATE 5 MM/HR (0-30)
[2023-10-20] MEDS: ALLOPURINOL 100 MG TABLET PO SCH (08:25)
[2023-10-20 11:10] LABS: CALCIUM, SERUM 8.9 mg/dL (8.5-10.1); CREATININE 0.8 mg/dL (0.6-1.3); MAGNESIUM 2.3 mg/dL (1.8-2.4); POTASSIUM 4.4 mmol/L (3.5-5.1)
[2023-10-20 11:13] LABS: BASOPHILS # (AUTO) 0.2 K/uL (0.0-0.2); EOSINOPHILS # (AUTO) 1.6 K/uL (0.0-0.7); EOSINOPHILS % (AUTO) 10.5 % (0.0-6.0); HEMATOCRIT 52 % (33-45); HEMOGLOBIN 16.7 g/dL (11.5-14.8); LYMPHOCYTES # (AUTO) 1.9 K/uL (0.8-4.8); LYMPHOCYTES % (AUTO) 12.3 % (20.0-44.0); MEAN CORPUSCULAR HEMOGLOBIN 27 PG (26.0-33.0); MEAN CORPUSCULAR HGB CONC 32 g/dl (31.0-36.0); MEAN CORPUSCULAR VOLUME 84 fL (82-100); MONOCYTES # (AUTO) 1.5 K/uL (0.1-1.30); MONOCYTES % (AUTO) 9.6 % (2.0-12.0); NEUTROPHILS # (AUTO) 10.1 K/uL (1.8-8.9); NEUTROPHILS % (AUTO) 66.6 % (43.0-81.0); PLATELET COUNT (AUTO) 620 K/uL (150-450); RED BLOOD CELL COUNT(AUTO) 6.14 MIL/uL (4.0-5.2); RED CELL DISTRIBUTION WIDTH 19.7 % (11.5-15.0); WHITE BLOOD COUNT (AUTO) 15.1 K/uL (4.3-11.0)
[2023-10-20 12:00] VITALS: BP 119/62; TEMP 97.5; O2SAT 96
[2023-10-20 16:00] VITALS: BP 114/61; TEMP 97.1; O2SAT 98
[2023-10-20] MEDS: HYDROXYUREA 500 MG CAPSULE PO SCH (17:43)
[2023-10-20] MEDS: TRIAMCINOLONE ACETONIDE 0.5% 15 GM TUBE TP SCH (17:52)
[2023-10-20 20:00] VITALS: BP 132/69; TEMP 97.5; O2SAT 98
[2023-10-20] MEDS: diphenhydrAMINE HCL 25 MG CAPSULE PO PRN (21:00)
[2023-10-21] VITALS: BP 129/63; TEMP 97.5; O2SAT 95
[2023-10-21 04:00] VITALS: BP 114/68; TEMP 97.5; O2SAT 98
[2023-10-21 07:42] LABS: BASOPHILS # (AUTO) 0.1 K/uL (0.0-0.2); BASOPHILS % (AUTO) 0.5 % (0.0-2.0); EOSINOPHILS # (AUTO) 1.6 K/uL (0.0-0.7); EOSINOPHILS % (AUTO) 10.6 % (0.0-6.0); HEMATOCRIT 49 % (33-45); HEMOGLOBIN 15.9 g/dL (11.5-14.8); LYMPHOCYTES # (AUTO) 1.7 K/uL (0.8-4.8); LYMPHOCYTES % (AUTO) 11.2 % (20.0-44.0); MEAN CORPUSCULAR HEMOGLOBIN 27 PG (26.0-33.0); MEAN CORPUSCULAR HGB CONC 33 g/dl (31.0-36.0); MEAN CORPUSCULAR VOLUME 84 fL (82-100); MONOCYTES # (AUTO) 1.2 K/uL (0.1-1.30); MONOCYTES % (AUTO) 7.8 % (2.0-12.0); NEUTROPHILS # (AUTO) 10.6 K/uL (1.8-8.9); NEUTROPHILS % (AUTO) 69.9 % (43.0-81.0); PLATELET COUNT (AUTO) 617 K/uL (150-450); RED BLOOD CELL COUNT(AUTO) 5.85 MIL/uL (4.0-5.2); WHITE BLOOD COUNT (AUTO) 15.1 K/uL (4.3-11.0)
[2023-10-21 08:00] VITALS: BP 131/66; TEMP 98; O2SAT 96
[2023-10-21 08:08] LABS: CALCIUM, SERUM 8.9 mg/dL (8.5-10.1); CARBON DIOXIDE 23 mmol/L (21-32); CHLORIDE 109 mmol/L (98-107); CREATININE 0.7 mg/dL (0.6-1.3); GLUCOSE 101 mg/dL (74-106); MAGNESIUM 2.5 mg/dL (1.8-2.4); PHOSPHORUS 3.3 mg/dL (2.5-4.9); POTASSIUM 3.9 mmol/L (3.5-5.1); SODIUM SERUM 140 mmol/L (136-145); UREA NITROGEN, BLOOD 26 mg/dL (7-18)
[2023-10-21 12:00] VITALS: BP 138/67; TEMP 98.1; O2SAT 99
[2023-10-21 16:00] VITALS: BP 116/63; TEMP 97.9; O2SAT 97
[2023-10-21 20:00] VITALS: BP 112/60; TEMP 98.4; O2SAT 95
[2023-10-22 04:00] VITALS: BP 130/63; TEMP 98.6; O2SAT 94
[2023-10-22 08:00] VITALS: BP 122/53; TEMP 98; O2SAT 97
[2023-10-22 08:51] LABS: BASOPHILS # (AUTO) 0.2 K/uL (0.0-0.2); BASOPHILS % (AUTO) 1.2 % (0.0-2.0); EOSINOPHILS # (AUTO) 1.2 K/uL (0.0-0.7); EOSINOPHILS % (AUTO) 8.6 % (0.0-6.0); HEMATOCRIT 48 % (33-45); HEMOGLOBIN 15.6 g/dL (11.5-14.8); LYMPHOCYTES # (AUTO) 1.6 K/uL (0.8-4.8); LYMPHOCYTES % (AUTO) 11.3 % (20.0-44.0); MEAN CORPUSCULAR HEMOGLOBIN 27 PG (26.0-33.0); MEAN CORPUSCULAR HGB CONC 32 g/dl (31.0-36.0); MEAN CORPUSCULAR VOLUME 84 fL (82-100); MONOCYTES % (AUTO) 7.2 % (2.0-12.0); NEUTROPHILS % (AUTO) 71.7 % (43.0-81.0); PLATELET COUNT (AUTO) 634 K/uL (150-450); RED BLOOD CELL COUNT(AUTO) 5.74 MIL/uL (4.0-5.2); RED CELL DISTRIBUTION WIDTH 19.4 % (11.5-15.0); WHITE BLOOD COUNT (AUTO) 13.9 K/uL (4.3-11.0)
[2023-10-22 09:42] LABS: CALCIUM, SERUM 8.9 mg/dL (8.5-10.1); CARBON DIOXIDE 26 mmol/L (21-32); CHLORIDE 111 mmol/L (98-107); CREATININE 0.6 mg/dL (0.6-1.3); GLUCOSE 79 mg/dL (74-106); MAGNESIUM 2.4 mg/dL (1.8-2.4); SODIUM SERUM 142 mmol/L (136-145); UREA NITROGEN, BLOOD 23 mg/dL (7-18)
[2023-10-22] MEDS: HYDROXYUREA 500 MG CAPSULE PO SCH (16:43)
[2023-10-22 18:00] VITALS: BP 117/69; TEMP 97.5; O2SAT 100
[2023-10-22 20:00] VITALS: BP 123/78; TEMP 100.2; O2SAT 97
[2023-10-22] MEDS: ACETAMINOPHEN 325 MG TABLET PO PRN (22:19)
[2023-10-23 04:00] VITALS: BP 119/75; TEMP 98.9; O2SAT 98
[2023-10-23 08:00] VITALS: BP 142/59; TEMP 98.2; O2SAT 97
[2023-10-23 10:21] LABS: BASOPHILS # (AUTO) 0.2 K/uL (0.0-0.2); BASOPHILS % (AUTO) 1.6 % (0.0-2.0); CALCIUM, SERUM 8.9 mg/dL (8.5-10.1); CARBON DIOXIDE 26 mmol/L (21-32); CHLORIDE 107 mmol/L (98-107); CREATININE 0.6 mg/dL (0.6-1.3); EOSINOPHILS % (AUTO) 8.1 % (0.0-6.0); GLUCOSE 111 mg/dL (74-106); HEMATOCRIT 52 % (33-45); HEMOGLOBIN 16.9 g/dL (11.5-14.8); LYMPHOCYTES # (AUTO) 1.4 K/uL (0.8-4.8); LYMPHOCYTES % (AUTO) 11.2 % (20.0-44.0); MAGNESIUM 2.5 mg/dL (1.8-2.4); MEAN CORPUSCULAR HEMOGLOBIN 28 PG (26.0-33.0); MEAN CORPUSCULAR HGB CONC 32 g/dl (31.0-36.0); MEAN CORPUSCULAR VOLUME 86 fL (82-100); MONOCYTES # (AUTO) 0.6 K/uL (0.1-1.30); MONOCYTES % (AUTO) 4.6 % (2.0-12.0); NEUTROPHILS # (AUTO) 9.5 K/uL (1.8-8.9); NEUTROPHILS % (AUTO) 74.5 % (43.0-81.0); PHOSPHORUS 3.3 mg/dL (2.5-4.9); PLATELET COUNT (AUTO) 624 K/uL (150-450); POTASSIUM 4.1 mmol/L (3.5-5.1); RED CELL DISTRIBUTION WIDTH 20.1 % (11.5-15.0); SODIUM SERUM 140 mmol/L (136-145); UREA NITROGEN, BLOOD 21 mg/dL (7-18); WHITE BLOOD COUNT (AUTO) 12.7 K/uL (4.3-11.0)
[2023-10-23 12:54] LABS: ANISOCYTOSIS 1+; PLATELET ESTIMATE INCREASED
[2023-10-23 12:55] LABS: OVALOCYTES 1+
[2023-10-23 16:00] VITALS: BP 123/63; TEMP 98.2; O2SAT 99
[2023-10-23] MEDS: HYDROXYUREA 500 MG CAPSULE PO SCH (17:11)
[2023-10-23 20:00] VITALS: BP 95/56; TEMP 98.2; O2SAT 99
[2023-10-24 04:00] VITALS: BP 96/58; TEMP 98.5; O2SAT 96
[2023-10-24 08:00] VITALS: BP 121/60; TEMP 97.8; O2SAT 96
[2023-10-24 09:02] LABS: BASOPHILS # (AUTO) 0.2 K/uL (0.0-0.2); EOSINOPHILS # (AUTO) 0.7 K/uL (0.0-0.7); EOSINOPHILS % (AUTO) 5.6 % (0.0-6.0); HEMATOCRIT 50 % (33-45); HEMOGLOBIN 15.7 g/dL (11.5-14.8); LYMPHOCYTES # (AUTO) 1.2 K/uL (0.8-4.8); LYMPHOCYTES % (AUTO) 9.8 % (20.0-44.0); MEAN CORPUSCULAR HEMOGLOBIN 27 PG (26.0-33.0); MEAN CORPUSCULAR HGB CONC 32 g/dl (31.0-36.0); MEAN CORPUSCULAR VOLUME 85 fL (82-100); MONOCYTES # (AUTO) 0.3 K/uL (0.1-1.30); MONOCYTES % (AUTO) 2.5 % (2.0-12.0); NEUTROPHILS # (AUTO) 9.7 K/uL (1.8-8.9); NEUTROPHILS % (AUTO) 80.1 % (43.0-81.0); PLATELET COUNT (AUTO) 678 K/uL (150-450); RED BLOOD CELL COUNT(AUTO) 5.86 MIL/uL (4.0-5.2); RED CELL DISTRIBUTION WIDTH 19.3 % (11.5-15.0); WHITE BLOOD COUNT (AUTO) 12.1 K/uL (4.3-11.0)
[2023-10-24 09:49] LABS: CALCIUM, SERUM 8.9 mg/dL (8.5-10.1); CARBON DIOXIDE 23 mmol/L (21-32); CHLORIDE 109 mmol/L (98-107); CREATININE 0.6 mg/dL (0.6-1.3); GLUCOSE 99 mg/dL (74-106); MAGNESIUM 2.3 mg/dL (1.8-2.4); PHOSPHORUS 3.6 mg/dL (2.5-4.9); POTASSIUM 4.4 mmol/L (3.5-5.1); SODIUM SERUM 142 mmol/L (136-145); UREA NITROGEN, BLOOD 22 mg/dL (7-18)
[2023-10-24 11:37] LABS: ANISOCYTOSIS 1+; EOSINOPHILS % (MANUAL) 10 % (0-4); LYMPHOCYTES % (MANUAL) 12 % (16-48); MONOCYTES % (MANUAL) 8 % (0-11.0); NEUTROPHILS % (MANUAL) 70 (42-76); PLATELET ESTIMATE INCREASED
[2023-10-24 16:00] VITALS: BP 132/64; TEMP 98.1; O2SAT 96
[2023-10-24 20:00] VITALS: BP 124/56; TEMP 98.2; O2SAT 96
[2023-10-25 04:00] VITALS: BP 120/64; TEMP 97.9; O2SAT 96
[2023-10-25 08:00] VITALS: BP 117/61; TEMP 98.4; O2SAT 96
[2023-10-25 13:23] LABS: BASOPHILS # (AUTO) 0.1 K/uL (0.0-0.2); BASOPHILS % (AUTO) 0.9 % (0.0-2.0); EOSINOPHILS # (AUTO) 0.4 K/uL (0.0-0.7); EOSINOPHILS % (AUTO) 4.2 % (0.0-6.0); HEMATOCRIT 48 % (33-45); HEMOGLOBIN 15.5 g/dL (11.5-14.8); LYMPHOCYTES % (AUTO) 11.3 % (20.0-44.0); MEAN CORPUSCULAR HEMOGLOBIN 27 PG (26.0-33.0); MEAN CORPUSCULAR HGB CONC 32 g/dl (31.0-36.0); MEAN CORPUSCULAR VOLUME 83 fL (82-100); MONOCYTES # (AUTO) 0.3 K/uL (0.1-1.30); MONOCYTES % (AUTO) 3.8 % (2.0-12.0); NEUTROPHILS # (AUTO) 7.3 K/uL (1.8-8.9); NEUTROPHILS % (AUTO) 79.8 % (43.0-81.0); PLATELET COUNT (AUTO) 745 K/uL (150-450); RED BLOOD CELL COUNT(AUTO) 5.76 MIL/uL (4.0-5.2); RED CELL DISTRIBUTION WIDTH 19.4 % (11.5-15.0); WHITE BLOOD COUNT (AUTO) 9.2 K/uL (4.3-11.0)
[2023-10-25 16:00] VITALS: BP 123/63; TEMP 97.5; O2SAT 96
[2023-10-25] MEDS ORDERED: HYDROXYUREA 500 MG CAPSULE PO SCH (20:00)
== END 2023-10-25 17:30 | DRG 814 ==
LOC: ER 12:10 → MEDSG1 15:43 → TELE1 17:05 → MEDSG1 10-21 10:53
PROVIDERS: ADMIT Student in an Organized Health Care Education/Training Program; ATTEND Nurse Practitioner Family
PROC: 0HBEXZZ Excision of Left Lower Arm Skin, External Approach (ICD-10-PCS; principal; 2023-10-20)
PROC: 0HBDXZZ Excision of Right Lower Arm Skin, External Approach (ICD-10-PCS; 2023-10-20)
DX: D75.1 Secondary polycythemia (principal); G93.41 Metabolic encephalopathy; I21.A1 Myocardial infarction type 2; I50.22 Chronic systolic (congestive) heart failure; D68.59 Other primary thrombophilia; D47.1 Chronic myeloproliferative disease; R62.7 Adult failure to thrive; E86.0 Dehydration; L20.9 Atopic dermatitis, unspecified; I11.0 Hypertensive heart disease with heart failure; E78.5 Hyperlipidemia, unspecified; E87.6 Hypokalemia; I73.9 Peripheral vascular disease, unspecified; Z79.01 Long term (current) use of anticoagulants; Z79.82 Long term (current) use of aspirin; D72.829 Elevated white blood cell count, unspecified; F03.90 Unspecified dementia, unspecified severity, without behavioral disturbance, psychotic disturbance, mood disturbance, and anxiety; Z89.611 Acquired absence of right leg above knee; M19.90 Unspecified osteoarthritis, unspecified site; D75.839 Thrombocytosis, unspecified; Z68.20 Body mass index [BMI] 20.0-20.9, adult; R79.89 Other specified abnormal findings of blood chemistry
CPT/HCPCS: 36415; 71045-TC; 80048-TC; 80061-TC; 80076-TC; 83605-TC; 83735-TC; 84100-TC; 84443-TC; 84484-TC; 84550-TC; 85025-TC; 85652-TC; 85730-TC; 86140-TC; 87040-TC; 87081-TC; 87086-TC; 93307-TC; A4223; A6253; G0378; J0692; J0696; J7040; J7050; J7060; Q0163

== ENCOUNTER 2025-05-12 13:06 | Inpatient (IN) | payer MEDICARE, OTHER ==
[~2025-05-12] VITALS: Ht 160 cm; Wt 68.5 kg
[~2025-05-12 13:06] MED LIST changes: -AMIN30LI2 PO; -ASCO-352 PO; +BISA10SU11 RC; +CEFU250T85 PO; +NA P133E RC; +PRED20TA PO
[2025-05-12] MEDS: IV NS 0.9% 500 ML BAG IV ONE (13:50)
[2025-05-12] MEDS: CEFTRIAXONE 1 G in IV D5W 50 ML IV ONE (13:50)
[2025-05-12] MEDS ORDERED: CEFTRIAXONE 1GM BAG (ER ONLY) 50 ML IV ONE (13:53)
[2025-05-12 14:02] LABS: PLATELET COUNT (AUTO) 489 K/uL (150-450); RED BLOOD CELL COUNT(AUTO) 5.37 MIL/uL (4.0-5.2); RED CELL DISTRIBUTION WIDTH 19.6 % (11.5-15.0); WHITE BLOOD COUNT (AUTO) 11.6 K/uL (4.3-11.0)
[2025-05-12 14:11] LABS: CALCIUM, SERUM 9.0 mg/dL (8.5-10.1); CREATININE 0.7 mg/dL (0.6-1.3); SODIUM SERUM 139.0 mmol/L (136-145); UREA NITROGEN, BLOOD 13.0 mg/dL (7-18)
[2025-05-12 14:16] LABS: ASPARTATE AMINOTRANSFERASE 17.0 U/L (15-37); TOTAL PROTEIN, SERUM 7.3 g/dL (6.4-8.2)
[2025-05-12 14:18] LABS: INR 1.02 (0.91-1.10)
[2025-05-12 14:19] LABS: LACTIC ACID 1.5 mmol/L (0.4-2.0)
[2025-05-12] MEDS: AZITHROMYCIN 500 MG in IV D5W 250 ML IV ONE (14:50)
[2025-05-12] MEDS ORDERED: ACETAMINOPHEN 325 MG TABLET PO PRN (16:00)
[2025-05-12] MEDS ORDERED: MAGNESIUM HYDROXIDE 30 ML UDC PO PRN (16:00)
[2025-05-12] MEDS ORDERED: ONDANSETRON HCL/PF 4 MG/2 ML VIAL IVP PRN (16:00)
[2025-05-12] MEDS ORDERED: Z GUARD REMEDY 4 OZ OINT TP PRN (16:00)
[2025-05-12] MEDS ORDERED: BUSP5TAB3 PO (17:07)
[2025-05-12] MEDS ORDERED: ALLO100T PO (17:07)
[2025-05-12] MEDS ORDERED: GUAI-671 PO (17:07)
[2025-05-12] MEDS ORDERED: ASPI-1169 PO (17:07)
[2025-05-12 17:30] VITALS: BP 136/72; TEMP 97.5
[2025-05-12 18:27] VITALS: BP 136/72; TEMP 97.5; O2SAT 95
[2025-05-12 20:00] VITALS: BP 122/60; TEMP 99.1; O2SAT 94
[2025-05-12] MEDS: METOPROLOL SUCCINATE 25 MG TAB.SR.24H PO SCH (21:20)
[2025-05-12] MEDS: ATORVASTATIN 40 MG TABLET PO SCH (21:21)
[2025-05-12] MEDS: IV D5/0.45 NACL 1,000 ML IV ONE (21:22)
[2025-05-13 00:22] LABS: APPEARANCE,URINE CLEAR (CLEAR); BLOOD, URINE TRACE-INTA Ery/uL (NEGATIVE); LEUKOCYTE ESTERASE ,URINE 1+ (NEGATIVE); NITRITE, URINE NEGATIVE (NEGATIVE); UGLUCOSE 2+ mg/dL (NEGATIVE)
[2025-05-13 00:34] LABS: ADD URINE CULTURE YES; SQUAMOUS EPITHELIAL CELL,UR Few /HPF (None Seen)
[2025-05-13 04:00] VITALS: BP 122/83; TEMP 97.5; O2SAT 95
[2025-05-13 08:00] VITALS: BP 129/59; TEMP 98.6; O2SAT 96
[2025-05-13 08:20] LABS: PLATELET COUNT (AUTO) 386 K/uL (150-450); RED BLOOD CELL COUNT(AUTO) 4.80 MIL/uL (4.0-5.2); RED CELL DISTRIBUTION WIDTH 19.1 % (11.5-15.0); WHITE BLOOD COUNT (AUTO) 8.4 K/uL (4.3-11.0)
[2025-05-13] MEDS: PANTOPRAZOLE 40 MG TABLET.DR PO SCH (08:43)
[2025-05-13] MEDS: DAPAGLIFLOZIN PROPANEDIOL 5 MG TABLET PO SCH (08:44)
[2025-05-13] MEDS: HYDROXYUREA 500 MG CAPSULE PO SCH (08:44)
[2025-05-13] MEDS: ASPIRIN 81 MG TAB.CHEW PO SCH (08:44)
[2025-05-13] MEDS: ALLOPURINOL 100 MG TABLET PO SCH (08:45)
[2025-05-13] MEDS: APIXABAN 2.5 MG TABLET PO SCH (08:46)
[2025-05-13] MEDS: GABAPENTIN 300 MG CAPSULE PO SCH (08:47)
[2025-05-13 09:02] LABS: CALCIUM, SERUM 8.9 mg/dL (8.5-10.1); CREATININE 0.5 mg/dL (0.6-1.3); PHOSPHORUS 3.0 mg/dL (2.5-4.9); SODIUM SERUM 140.0 mmol/L (136-145); UREA NITROGEN, BLOOD 12.0 mg/dL (7-18)
[2025-05-13 16:00] VITALS: BP 122/58; TEMP 98.1; O2SAT 96
[2025-05-13 20:00] VITALS: BP 123/63; TEMP 98.1; O2SAT 95
[2025-05-13] MEDS: CEFTRIAXONE 1 G in IV D5W 50 ML IV SCH (20:55)
[2025-05-14 04:00] VITALS: BP_SYST 115; BP_SYST 123; BP_DIAS 65; BP_DIAS 73; TEMP 97.9; TEMP 98; O2SAT 94; O2SAT 98
[2025-05-14 08:00] VITALS: BP 121/58; TEMP 97.5; O2SAT 96
[2025-05-14 08:22] LABS: PLATELET COUNT (AUTO) 360 K/uL (150-450); RED BLOOD CELL COUNT(AUTO) 5.00 MIL/uL (4.0-5.2); RED CELL DISTRIBUTION WIDTH 18.9 % (11.5-15.0); WHITE BLOOD COUNT (AUTO) 8.0 K/uL (4.3-11.0)
[2025-05-14 08:27] LABS: CALCIUM, SERUM 9.4 mg/dL (8.5-10.1); CREATININE 0.6 mg/dL (0.6-1.3); PHOSPHORUS 3.6 mg/dL (2.5-4.9); SODIUM SERUM 143.0 mmol/L (136-145); UREA NITROGEN, BLOOD 15.0 mg/dL (7-18)
[2025-05-14 16:00] VITALS: BP 124/66; TEMP 98.3; O2SAT 97
[2025-05-14 20:00] VITALS: BP 139/71; TEMP 98.2; O2SAT 96
[2025-05-15 04:00] VITALS: BP_SYST 113; BP_SYST 145; BP_DIAS 55; BP_DIAS 73; TEMP 97.3; O2SAT 98
[2025-05-15 08:00] VITALS: BP 147/80; TEMP 97; O2SAT 98
[2025-05-15 09:19] LABS: PLATELET COUNT (AUTO) 332 K/uL (150-450); RED BLOOD CELL COUNT(AUTO) 5.29 MIL/uL (4.0-5.2); RED CELL DISTRIBUTION WIDTH 19.2 % (11.5-15.0); WHITE BLOOD COUNT (AUTO) 10.0 K/uL (4.3-11.0)
[2025-05-15 10:34] LABS: CALCIUM, SERUM 9.1 mg/dL (8.5-10.1); CREATININE 0.5 mg/dL (0.6-1.3); PHOSPHORUS 3.5 mg/dL (2.5-4.9); SODIUM SERUM 141.0 mmol/L (136-145); UREA NITROGEN, BLOOD 14.0 mg/dL (7-18)
[2025-05-15 16:00] VITALS: BP 135/75; TEMP 98.2; O2SAT 100
[2025-05-15 16:56] VITALS: BP 135/75
[2025-05-18] MEDS ORDERED: ERGOCALCIFEROL (VITAMIN D 2) 50,000 UNIT CAPSULE PO SCH (09:00)
== END 2025-05-15 18:26 | DRG 177 ==
LOC: ER 13:06 → MEDSG1 15:40
PROVIDERS: ADMIT Nurse Practitioner Family; ATTEND Nurse Practitioner Acute Care
DX: U07.1 COVID-19 (principal); G93.41 Metabolic encephalopathy; Z66 Do not resuscitate; R62.7 Adult failure to thrive; D47.1 Chronic myeloproliferative disease; D75.839 Thrombocytosis, unspecified; E86.0 Dehydration; N39.0 Urinary tract infection, site not specified; I50.9 Heart failure, unspecified; I73.9 Peripheral vascular disease, unspecified; F03.90 Unspecified dementia, unspecified severity, without behavioral disturbance, psychotic disturbance, mood disturbance, and anxiety; I11.0 Hypertensive heart disease with heart failure; K21.9 Gastro-esophageal reflux disease without esophagitis; E78.5 Hyperlipidemia, unspecified; Z79.84 Long term (current) use of oral hypoglycemic drugs; Z86.16 Personal history of COVID-19; Z79.01 Long term (current) use of anticoagulants; M15.9 Polyosteoarthritis, unspecified; Z79.899 Other long term (current) drug therapy; Z89.611 Acquired absence of right leg above knee; Z68.26 Body mass index [BMI] 26.0-26.9, adult
CPT/HCPCS: 36415; 71045-TC; 80048-TC; 80076-TC; 81001; 83605-TC; 83735-TC; 84100-TC; 85025-TC; 85378-TC; 85730-TC; 86140-TC; 87040-TC; 87081-TC; 87086-TC; A4223; G0378; J0456; J0696; J3490; J7040; J7050; J7060